=== PATIENT | female | born 1980 | race Caucasian/White ===

== ENCOUNTER 2025-08-15 06:15 | Emergency (ER) | payer SELFPAY ==
[~2025-08-15] VITALS: Ht 162.6 cm; Wt 55.0 kg
[2025-08-15 06:20] VITALS: O2SAT 100
[2025-08-15 08:31] LABS: INFLUENZA TYPE A Presumptive Negative (Pres. Neg.)
[2025-08-15 08:32] LABS: INFLUENZA TYPE B Presumptive Negative (Pres. Neg.)
[2025-08-15 08:57] VITALS: BP 123/83; PULSE 85; RESP 16; TEMP 37.1; O2SAT 100
== END 2025-08-15 08:57 | disposition home or self-care (01) ==
LOC: ER 06:15
DX: R05.9 Cough, unspecified (principal)
CPT/HCPCS: 71045; 87426; 87804; 99284